=== PATIENT | male | born 1955 ===

== ENCOUNTER → 2019-04-18 | Outpatient (CLI) | payer OTHER ==
[~2019-04-18] VITALS: Ht 172.7 cm; Wt 81.6 kg
[~2019-04-18] MED LIST: COMTAN200 MG PO; CRESTOR10 MG PO; HYDROCODON-ACE1 EAC7 PO; PAXIL10 MG PO; REQUIP3 MG PO; SINEMET 25-1001 EAC1 PO; ULTRAM 50MG TAB50 MG PO; VIAGRA50 MG PO
[2019-04-18 09:35] VITALS: BP 150/99
--- NOTE | 2019-04-18 09:43 | NUR ---
Pain Clinic Assessment: 1. History of Osteoarthritis: History of Rheumatoid Arthritis: 2. Height: 5 ft. 8 in. 172.7 cm. Weight: 180.0 lb. oz. 81.648 kg. Patient's BMI: 27.4 3. Vital Signs: BP: 150/99 Pulse: 104 Resp: 16 Temp: 02 Sat: 100 ECG Mon: 4. Pain Intensity: 6 5. Fall Risk: Dizziness: N Needs help standing or walking: N Fallen in the last 3 months: N Fall risk comments: 6. Patient on Blood Thinner: None 7. History of Hypertension: N 8. Opioid Therapy greater than 6 weeks: N Opiate Contract Signed: 9. Risk Assessment Tool Provided: 10. Functional Assessment Tool: 11. Recreational Drug Use: Never Drug Type: Tobacco Use: Never Smoker Tobacco Type: Amount or Packs/day: How Many Years: Alcohol Use: Yes Frequency: Weekly Quant: 1-2
--- NOTE | 2019-04-25 14:42 | HPC ---
[facility] [address] [place] [address] PAIN MANAGEMENT CONSULTATION Name: DORITA CORDERO Room #: REG CAITY Livia#: [id number] Admission: 04/18/19 ������������������ Attend Phys: Mauricio Kruger DO Discharge: ������������������ Date of : 57 Report #: [id number] THIS REPORT FOR: //name// CC: FAM physician/PCP Mauricio Dillard MD DATE OF SERVICE: 04/18/2019 REFERRING PHYSICIAN: Wm Dillard MD CHIEF COMPLAINT: Low back pain, left lower extremity pain with paresthesias. HISTORY OF PRESENT ILLNESS: As you know, the patient is a 63-year-old male who reports a history of chronic low back pain and left lower extremity pain with paresthesias. The patient states his pain became intensified on 03/06/2019. He denies specific injury or trauma. He has sought evaluation through his primary care physician who has trialled conservative medication management. The patient has been doing some home exercise, but has not had formalized physical therapy. He continued to experience symptoms that progressively worsened and he ultimately was sent for MRI, for which the patient reviewed with his PCP. Due to the lack of improvement with conservative medication management and traditional treatment options, the patient was subsequently referred to our clinic. The patient indicates today pain is steady, describes the pain as burning, aching, stabbing, numbness and tingling. Places current pain score at 6/10, daily average at 6/10, worst pain has been is 9/10. The patient states that movement of any kind especially walking exacerbates symptoms. Medications and cold packs tend to improve pain. The patient has been referred to our service to discuss treatment options for suspected lumbar radiculopathy. PAST MEDICAL HISTORY: 1. Erectile dysfunction. 2. Depression. 3. Dyslipidemia. 4. Parkinson's. PAST SURGICAL HISTORY: Left foot surgery. SOCIAL HISTORY: The patient denies tobacco, IV or illicit drug use. Admits to approximately 3 alcoholic beverages per day. He has retired approximately one year ago, not receiving workmen's compensation nor is he trying to obtain disability benefits. He is not in litigation in regards to pain. He is accompanied by his , present in room today. [facility] [address] [place] [address] PAIN MANAGEMENT CONSULTATION Name: DORITA CORDERO Room #: REG CLJanine Jose Angel.#: [id number] Admission: 04/18/19 ������������������ Attend Phys: Mauricio Kruger DO Discharge: ������������������ Date of : 57 Report #: [id number] REVIEW OF SYSTEMS: Positive for weight change, changes in bowel movements, constipation, abdominal pain, nocturia, testicular pain, numbness and tingling sensations involving the left lower extremity, tremors secondary to Parkinson's, insomnia. All other review of systems negative per 12-point review of systems other than those listed in history of present illness. Pain impact score 46/70 indicating moderate to severe interference of daily activities secondary to pain. ALLERGIES: No reported drug allergies. CURRENT MEDICATIONS: Tramadol 50 mg 1 tab every 6 hours p.r.n. pain, Viagra 50 mg p.r.n., paroxetine 10 mg per day, lovastatin 10 mg per day, ropinirole 3 mg p.o. at bedtime, Comtan 200 mg b.i.d., carbidopa/levodopa, 25/100 mg 5 times a day. IMAGING: MRI of the lumbar spine obtained on 03/17/2019 shows L1 with a compression fracture with moderate height loss and chronic wedging at the T11 and T12 levels. There is mild retrolisthesis of L1 on L2, multilevel degenerative changes. At L1-L2, small posterior disk bulge, mild facet arthropathy. No central canal or neural foraminal stenosis. L2-L3, a small posterior disk bulge, moderate facet arthropathy. No central canal or neural foraminal stenosis. L3-L4, minimal disk bulge, moderate facet arthropathy. No central canal or neural foraminal stenosis. L4-L5, small posterior disk bulge, advanced facet arthropathy, no canal narrowing, mild bilateral neural foraminal narrowing. L5-S1, severe disk height loss, broad-based posterior disk bulge, advanced facet arthropathy, moderate bilateral neural foraminal stenosis. PQRS: The patient has known osteoarthritic changes of the lumbar spine, bilateral hips, no rheumatoid arthritis. He is placing pain intensity at 6/10. He is not a fall risk, has not had a fall in the last 3 months, not on blood thinners. He is not treated for hypertension. He is not on chronic opioids. He has a low opioid addiction potential. Pain impact score 46/70, which is a moderate to severe interference of daily activities secondary to pain. PHYSICAL EXAMINATION: VITAL SIGNS: Blood pressure 150/99, pulse 104, respiratory rate 16 and unlabored. The patient is 100% on room air. Height 5 feet 8 inches tall, weight 180 pounds, BMI calculated 27.4. GENERAL: Well-developed, well-nourished, well-hydrated 63-year-old male appearing stated age, pain is rated today at 6/10. HEENT: Normocephalic, atraumatic. Pupils equal, round, reactive to light. Extraocular muscles are intact. Sclerae are nonicteric without injection. NEUROLOGIC: Cranial nerves 2-12 grossly intact. Speech fluent. The patient deemed a good historian. LUNGS: Clear, no wheezing, rhonchi or rales. [facility] [address] [place] [address] PAIN MANAGEMENT CONSULTATION Name: DORITA CORDERO [id number] Admission: 04/18/19 ������������������ Attend Phys: Mauricio Kruger DO Discharge: ������������������ Date of : 57 Report #: [id number] CARDIOVASCULAR: Regular. No appreciable gallop, no rub. ABDOMEN: Soft, nontender, nondistended, normoactive bowel sounds. EXTREMITIES: Show no clubbing, no cyanosis, and no edema. MUSCULOSKELETAL: Lower extremity strength is symmetrical 5/5, intact to light touch from L1 through S2 dermatomes. Deep tendon reflexes are symmetrical at patella and Achilles, but diminished bilaterally 1/4. Muscle bulk and tone is symmetrical in the lower extremities. Gait is noticeably antalgic with a kind of shuffling effect as typical for Parkinson's disease patients. He has a negative seated straight leg raising and positive supine straight leg raising, left. Matthew's test negative. Modified Gaenslen's positive for axial low back pain. Ankle clonus negative. Babinski's is negative. ASSESSMENT: 1. Symptomatic lumbar radiculopathy. 2. Displacement of lumbar intervertebral disk with radiculopathy. 3. Lumbosacral spondylosis with radiculopathy. 4. Neural foraminal stenosis of the lumbar spine. 5. Facet arthropathy of the lumbar spine. 6. Chronic intractable pain. PLAN: 1. Based on today's physical exam, the history the patient has provided, the description the patient uses in regards to pain as well as the location of symptoms, the likely source of the patient's symptoms is a lumbar radiculopathy. We discussed with the patient today treatment options for lumbar radiculopathy secondary to the findings of his recent imaging and his pain distribution. We discussed the following with the patient today: We discussed physical therapy, stretching exercises, core strengthening as an initial treatment option. This would be quite beneficial in this patient's case as it will improve the patient's mobility, also strength in the lower extremities and provide better balance. We discussed medication management utilizing neuropathic pain medications with the caveat that there is a possibility that his Parkinson symptoms may see either improvement or exacerbation. We have seen both of these medications. We discussed anti-inflammatory therapy for baseline analgesic treatment. We also discussed low dose opioid for pain control. We discussed also today other treatment options including lumbar epidural injection, spinal cord stimulator and ultimately surgical decompression. After reviewing the risks and benefits of all the proposed treatment options, the patient chose to begin with physical therapy and to begin the prior authorization process to undergo a lumbar epidural injection. The patient was advised that third libertarian payer restrictions require the authorization be obtained before the patient could undergo a lumbar epidural injection. Authorization could take anywhere from 4-7 working days. We will [address] [address] PAIN MANAGEMENT CONSULTATION Name: DORITA CORDERO Room #: REG CAITY Bhakta#: [id number] Admission: 04/18/19 ������������������ Attend Phys: Mauricio Kruger DO Discharge: ������������������ Date of : 57 Report #: [id number] begin this process immediately. In the interim, he will initiate physical therapy. 2. The patient was provided a prescription for physical therapy. He is to begin 3 visits for 6 weeks. He can initiate the physical therapy as quickly as possible. He can follow up with any physical therapy office we wishes to do so. He was given the physical therapy prescription today with evaluation and treat with modalities as necessary for pain. 3. The patient was provided a short dosing of Webb 5/325s one tab p.o. q. 4 hours p.r.n. for pain. I have given the patient #90 tablets, advised the patient this could be only used for pain that is uncontrolled with the typical treatment. He is not to rely on his medication prophylactically. This will not be a long-term treatment course. We have limited our initiation of opioid therapy to no greater than 2 months maximum time. He was given this prescription and advised of our timeframes. He will watch for side effects of somnolence, decreased mental acuity, disorientation, confusion, mental slowing and constipation with use of the medication. If he notes any side effects, discontinue immediately. 4. We will see the patient back in followup visit once we have achieved authorization for the patient to undergo the requested epidural injection. We will begin that process immediately. 5. We wish to thank Dr. Wm Dillard for the opportunity to see this patient in consultation. We will keep you apprised of his response to treatment as we address this ongoing pain. Again, we wish to thank you for the opportunity to see the patient in consultation. ��������������������������������������������� <ELECTRONICALLY SIGNED> ���������������������������������������� By: Mauricio Kruger DO ��������������������������������������������� 04/25/19 [id number] Mauricio Kruger DO /nt
== END ==
LOC: PAIN 06:43
DX: M47.26 Other spondylosis with radiculopathy, lumbar region (principal); M48.062 Spinal stenosis, lumbar region with neurogenic claudication; M12.88 Other specific arthropathies, not elsewhere classified, other specified site; M51.16 Intervertebral disc disorders with radiculopathy, lumbar region; G89.4 Chronic pain syndrome; F32.9 Major depressive disorder, single episode, unspecified; E78.00 Pure hypercholesterolemia, unspecified; G20 Parkinson's disease; Z79.899 Other long term (current) drug therapy

== ENCOUNTER → 2019-05-03 | Outpatient (CLI) | payer OTHER ==
[~2019-05-03] VITALS: Ht 172.7 cm; Wt 80.3 kg
[2019-05-03 09:41] VITALS: BP 163/100
--- NOTE | 2019-05-03 09:44 | NUR ---
Pain Clinic Assessment: 1. History of Osteoarthritis: SPINE History of Rheumatoid Arthritis: Not Applicable 2. Height: 5 ft. 8 in. 172.7 cm. Weight: 177.0 lb. oz. 80.287 kg. Patient's BMI: 26.9 3. Vital Signs: BP: 163/100 Pulse: 97 Resp: 16 Temp: 02 Sat: 98 ECG Mon: 4. Pain Intensity: 6-7 5. Fall Risk: Dizziness: N Needs help standing or walking: N Fallen in the last 3 months: N Fall risk comments: 6. Patient on Blood Thinner: None 7. History of Hypertension: N 8. Opioid Therapy greater than 6 weeks: N Opiate Contract Signed: 9. Risk Assessment Tool Provided: LOW-1 10. Functional Assessment Tool: / 11. Recreational Drug Use: Never Drug Type: Tobacco Use: Never Smoker Tobacco Type: Amount or Packs/day: How Many Years: Alcohol Use: Yes Frequency: Weekly Quant: 3
== END | disposition home or self-care (01) ==
LOC: PAIN 06:56
DX: M54.16 Radiculopathy, lumbar region (principal); Z79.899 Other long term (current) drug therapy